=== PATIENT | female | born 1955 | race Two or more races ===

== ENCOUNTER 2019-12-01 11:57 | Emergency (ER) | payer OTHER ==
[~2019-12-01] VITALS: Ht 157.5 cm; Wt 74.8 kg
[2019-12-01 12:03] VITALS: Ht 157.5 cm; Wt 74.8 kg
[2019-12-01 12:50] LABS: BASOPHIL % 0.4 % (0-2); PLATELET COUNT 208 x10^3mcL (130-400)
[2019-12-01 12:55] LABS: CALCIUM 8.7 mg/dL (8.5-10.1); CARBON DIOXIDE 26.9 mmol/L (21-32); CHLORIDE SERUM 101 mmol/L (98-107); CREATININE SERUM 0.9 mg/dL (0.6-1.0); GFR1 > 60 mL/min; GLUCOSE SERUM 133 mg/dL (74-106); POTASSIUM SERUM 4.6 mmol/L (3.5-5.1); SODIUM SERUM 137 mmol/L (136-145)
[2019-12-01 13:01] LABS: ALBUMIN 3.8 g/dL (3.4-5.0); ALKALINE PHOSPHATASE 79 U/L (46-116); ALT/SGPT 35 U/L (14-59); AST/SGOT 21 U/L (15-37); BILIRUBIN TOTAL 0.3 mg/dL (0.20-1.00); TOTAL PROTEIN, SERUM 8.1 g/dL (6.4-8.2)
[2019-12-01 14:07] VITALS: BP 119/69
== END 2019-12-01 14:07 | disposition home or self-care (01) ==
LOC: ED 11:57
PROVIDERS: Specialist
DX: J20.9 Acute bronchitis, unspecified (principal); I10 Essential (primary) hypertension; E11.9 Type 2 diabetes mellitus without complications
CPT/HCPCS: 36415; 83880; 87804; J7512; J7613; J7644